=== PATIENT | male | born 1945 | race Caucasian/White ===

== ENCOUNTER 2022-04-11 19:11 | Observation (INO) ==
[2022-04-11] MEDS ORDERED: Ipratropium/Albuterol Neb 3 ML IH ONE (19:27)
[2022-04-11] MEDS ORDERED: methylPREDNISolone 125 MG/2 ML VIAL IVP ONE (19:27)
[2022-04-11 19:52] LABS: Basophils # 0.1 K/mcL (0.0-0.2); Basophils % 0.6 %; Eosinophils # 0.5 K/mcL (0.0-0.6); Hematocrit 50.3 % (37.5-50.1); Hemoglobin 16.4 g/dL (12.9-16.9); Immature Granulocytes % 0.2 % (0-4); Lymphocytes # 0.7 K/mcL (0.6-4.6); Lymphocytes % 8.2 %; Mean Corpuscular HGB Conc 32.6 g/dL (31.6-35.5); Mean Corpuscular Hemoglobin 30.9 pg (28.0-33.3); Mean Corpuscular Volume 94.7 fL (83.0-100.0); Mean Platelet Volume 9.9 fL (9.4-12.4); Monocytes # 0.3 K/mcL (0.0-1.3); Monocytes % 2.8 %; Neutrophils # 7.5 K/mcL (1.6-8.9); Platelet Count 262 K/mcL (140-400); Red Blood Count 5.31 M/mcL (4.19-5.50); Red Cell Distribution Width 13.3 % (11.5-14.5); Segmented Neutrophils % 83.2 %
[2022-04-11] MEDS ORDERED: cefTRIAXone 1,000 MG in Water for inj. (sterile) 10 ML IVP ONE (19:54)
[2022-04-11] MEDS ORDERED: Azithromycin 500 MG in 0.9 % Sodium Chloride 250 ML IVPB ONE (19:54)
[2022-04-11 19:58] LABS: VBG HCO3 26 mEq/L (21-27); VBG PCO2 50 mmHg (41-51); VBG PH 7.31 pH Units (7.32-7.42); VBG PO2 59 mmHg (25-50)
[2022-04-11 20:12] LABS: Calcium 9.2 mg/dL (8.6-10.3); Potassium 4.3 mEq/L (3.5-5.1)
[2022-04-11 20:13] LABS: Troponin I 0.03 ng/mL (< 0.04)
[2022-04-11 21:26] LABS: Influenza A PCR Negative (Negative); Influenza B PCR Negative (Negative); Resp. Syncytial Virus PCR Negative (Negative)
[2022-04-11 21:27] LABS: SARS-CoV-2 by PCR (In House) Negative (Negative)
[2022-04-11] MEDS ORDERED: Naloxone 0.4 MG/ML INJ IVP PRN (21:46)
[2022-04-11] MEDS ORDERED: MOM Conc 10 ML UD.LIQ PO PRN (21:46)
[2022-04-11] MEDS ORDERED: Melatonin 3 MG TABLET PO PRN (21:46)
[2022-04-11] MEDS ORDERED: Ondansetron ODT 4 MG TAB.RAPDIS SL PRN (21:46)
[2022-04-11] MEDS ORDERED: Acetaminophen 325 MG TABLET PO PRN (21:46)
[2022-04-11] MEDS ORDERED: Iopamidol - 370 500 ML MLS IVP ONE (22:14)
[2022-04-11 22:19] LABS: ABG Base Excess -2 mEq/L (-2 to 3); ABG HCO3 24 mEq/L (21-27); ABG Oxygen Saturation 100 % (95-98); ABG PCO2 46 mmHg (35-45); ABG PH 7.33 pH Units (7.32-7.45); ABG PO2 221 mmHg (85-104); ABG TCO2 26 mEq/L (20-26); Blood Gas Pressure Support 12 cm H2O
[2022-04-11] MEDS: Ipratropium/Albuterol Neb 3 ML IH SCH (23:19)
[2022-04-12 00:36] LABS: Adenovirus Not Detected (Not Detect); Bordetella Pertussis Not Detected (Not Detect); Chlamydophila pneumoniae Not Detected (Not Detect); Coronavirus 229E Not Detected (Not Detect); Coronavirus HKU1 Not Detected (Not Detect); Coronavirus NL63 Not Detected (Not Detect); Coronavirus OC43 Not Detected (Not Detect); Human Metapneumovirus Not Detected (Not Detect); Human Rhinovirus/Enterovirus Not Detected (Not Detect); Influenza A Subtype 2009 H1 Not Detected (Not Detect); Influenza B Not Detected (Not Detect); Mycoplasma pneumoniae Not Detected (Not Detect); Parainfluenza Virus 1 Not Detected (Not Detect); Parainfluenza Virus 2 Not Detected (Not Detect); Parainfluenza Virus 3 Not Detected (Not Detect); Parainfluenza Virus 4 Not Detected (Not Detect); Respiratory Syncytial Virus Not Detected (Not Detect); SARS-CoV-2 Not Detected (Not Detect)
[2022-04-12] MEDS: MethylPREDNISolone 40 MG/ML VIAL IVP SCH ×4 (02:34→21:11)
[2022-04-12] MEDS ORDERED: *HR* LORazepam 2 MG/ML VIAL IVP STA (03:59)
[2022-04-12] MEDS: Ipratropium/Albuterol Neb 3 ML IH SCH ×6 (04:27→23:46)
[2022-04-12] MEDS ORDERED: Morphine Sulfate 2 MG/ML SYRINGE IVP ONE (05:07)
[2022-04-12] MEDS: *HR* Heparin 5,000 UNIT/ML VIAL SQ SCH ×3 (05:19→21:12)
[2022-04-12 05:46] LABS: Hematocrit 50.3 % (37.5-50.1); Hemoglobin 16.2 g/dL (12.9-16.9); Mean Corpuscular HGB Conc 32.2 g/dL (31.6-35.5); Mean Corpuscular Hemoglobin 30.8 pg (28.0-33.3); Mean Corpuscular Volume 95.6 fL (83.0-100.0); Mean Platelet Volume 10.1 fL (9.4-12.4); Platelet Count 269 K/mcL (140-400); Red Blood Count 5.26 M/mcL (4.19-5.50); Red Cell Distribution Width 13.4 % (11.5-14.5); White Blood Count 9.6 K/mcL (4.3-11.1)
[2022-04-12] MEDS: Azithromycin 250 MG TABLET PO SCH (08:34)
[2022-04-12] MEDS ORDERED: predniSONE 20 MG TABLET PO SCH (09:00)
[2022-04-12] MEDS: amLODIPine 5 MG TABLET PO SCH (12:00)
[2022-04-12 12:06] LABS: Calcium 9.3 mg/dL (8.6-10.3); Potassium 4.5 mEq/L (3.5-5.1)
[2022-04-12] MEDS ORDERED: D5% in Water 1,000 ML IVC PRN (13:42)
[2022-04-12] MEDS ORDERED: Dextrose Gel 15 GM/37.5 ML TUBE PO PRN ×2 (13:42)
[2022-04-12] MEDS ORDERED: *HR* Dextrose 50 % in Water (Syg) 50 ML SYRINGE IVP PRN (13:42)
[2022-04-12] MEDS: Benzonatate 100 MG CAPSULE PO PRN (14:54)
[2022-04-12] MEDS ORDERED: Insulin LISPRO 300 UNITS/3 ML VIAL SUBQ SCH (18:00)
[2022-04-12] MEDS ORDERED: hydrOXYzine pamoate 25 MG CAPSULE PO PRN (18:37)
[2022-04-13] MEDS: MethylPREDNISolone 40 MG/ML VIAL IVP SCH ×3 (02:20→13:57)
[2022-04-13] MEDS: Benzonatate 100 MG CAPSULE PO PRN (02:28)
[2022-04-13 03:43] LABS: Hematocrit 47.8 % (37.5-50.1); Hemoglobin 15.3 g/dL (12.9-16.9); Mean Corpuscular Hemoglobin 30.8 pg (28.0-33.3); Mean Corpuscular Volume 96.2 fL (83.0-100.0); Mean Platelet Volume 10.3 fL (9.4-12.4); Platelet Count 263 K/mcL (140-400); Red Blood Count 4.97 M/mcL (4.19-5.50); Red Cell Distribution Width 13.6 % (11.5-14.5)
[2022-04-13 03:59] LABS: Calcium 8.9 mg/dL (8.6-10.3); Potassium 4.4 mEq/L (3.5-5.1)
[2022-04-13] MEDS: Ipratropium/Albuterol Neb 3 ML IH SCH ×3 (04:37→11:15)
[2022-04-13] MEDS: *HR* Heparin 5,000 UNIT/ML VIAL SQ SCH ×3 (05:27→19:49)
[2022-04-13] MEDS: Insulin LISPRO 300 UNITS/3 ML VIAL SUBQ SCH ×3 (07:36→17:11)
[2022-04-13] MEDS: amLODIPine 5 MG TABLET PO SCH (09:18)
[2022-04-13] MEDS: Azithromycin 250 MG TABLET PO SCH (09:18)
[2022-04-13] MEDS: Aspirin Enteric Coated 81 MG Tablet PO SCH (09:19)
[2022-04-13] MEDS ORDERED: Levalbuterol Neb 0.63 MG/3 ML IH SCH (14:00)
[2022-04-13] MEDS ORDERED: lisinopriL 10 MG TABLET PO SCH (14:15)
[2022-04-13] MEDS: Levalbuterol Neb 0.63 MG/3 ML IH SCH ×2 (15:46→22:43)
[2022-04-13] MEDS: lisinopriL 20 MG TABLET PO SCH (17:17)
[2022-04-13] MEDS: Budesonide/Formoterol 160/4.5 1 PUFF INH IH SCH (22:43)
[2022-04-14 03:03] LABS: Hematocrit 48.5 % (37.5-50.1); Hemoglobin 15.3 g/dL (12.9-16.9); Mean Corpuscular HGB Conc 31.5 g/dL (31.6-35.5); Mean Corpuscular Hemoglobin 30.8 pg (28.0-33.3); Mean Corpuscular Volume 97.6 fL (83.0-100.0); Mean Platelet Volume 10.3 fL (9.4-12.4); Platelet Count 271 K/mcL (140-400); Red Blood Count 4.97 M/mcL (4.19-5.50); Red Cell Distribution Width 13.9 % (11.5-14.5)
[2022-04-14 03:15] LABS: Calcium 9.1 mg/dL (8.6-10.3); Potassium 5.1 mEq/L (3.5-5.1)
[2022-04-14] MEDS: Levalbuterol Neb 0.63 MG/3 ML IH SCH ×2 (04:21→08:15)
[2022-04-14] MEDS ORDERED: MethylPREDNISolone 40 MG/ML VIAL IVP SCH (06:00)
[2022-04-14] MEDS: *HR* Heparin 5,000 UNIT/ML VIAL SQ SCH ×2 (06:49→13:05)
[2022-04-14] MEDS: Budesonide/Formoterol 160/4.5 1 PUFF INH IH SCH (08:17)
[2022-04-14] MEDS: Azithromycin 250 MG TABLET PO SCH (09:39)
[2022-04-14] MEDS: Aspirin Enteric Coated 81 MG Tablet PO SCH (09:39)
[2022-04-14] MEDS: Insulin LISPRO 300 UNITS/3 ML VIAL SUBQ SCH ×2 (09:39→13:05)
[2022-04-14] MEDS: lisinopriL 20 MG TABLET PO SCH (09:39)
[2022-04-14] MEDS: amLODIPine 5 MG TABLET PO SCH (09:39)
[2022-04-14 10:07] VITALS: BP 157/61; PULSE 94; TEMP 98.7
[2022-04-14 11:09] VITALS: O2SAT 93
== END 2022-04-14 16:00 | disposition home or self-care (01) ==
LOC: EMEROOARM 19:11 → 2NENU 19:11 → SUATTDRO 21:32 → 2NENU 23:00
PROVIDERS: ADMIT Internal Medicine; ATTEND Internal Medicine